=== PATIENT | female | born 1990 | race Caucasian/White ===

== ENCOUNTER 2018-10-30 11:18 | Outpatient (REF) | payer OTHER, SELFPAY ==
--- NOTE | 2018-10-30 10:30 | PAPFT_PTH ---
PATIENT: Windy Garsia LOC: [facility] U#:[id number] AGE/SX: 28/F ROOM: RE10/30/[address]: Roxanne Good NP : 1990 BED: DIS: 10/30/2018 SPEC #: [id number] RECD: 10/30/18 13:01 STATUS: MERRY ESPINOZA #: [id number] STONE: 10/30/18 10:[address]: Roxanne Good NP DEPT: [facility] Cytology RECD BY: Nadiya Davis ENTERED: 10/30/18 13:01 SP TYPE: PAPFT OTHR DR: Funmi Chaudhry Tissues: 1 - CX/ENDOCX FOR PAP SMEARS Procedures: PAP THIN PREP/UVM Screening HPV DNA PROBE Comments: [id number]
== END 2018-10-30 11:38 ==
LOC: LBN 11:18
PROVIDERS: PCP Nurse Practitioner Adult Health; Visit Provider Nurse Practitioner Women's Health
DX: Z12.4 Encounter for screening for malignant neoplasm of cervix (principal); Z11.51 Encounter for screening for human papillomavirus (HPV)
CPT/HCPCS: 88142; 87624

== ENCOUNTER 2019-05-29 13:18 | Outpatient (REF) | payer MEDICAID, SELFPAY ==
[2019-05-29 20:43] LABS: TSH (W/Ref FT4) 0.95 uIU/mL (0.36-3.74)
== END 2019-05-29 13:38 ==
LOC: NCHCN 13:18
PROVIDERS: PCP Nurse Practitioner Adult Health; Visit Provider Nurse Practitioner Psychiatric/Mental Health
DX: F41.9 Anxiety disorder, unspecified (principal)
CPT/HCPCS: 84443

== ENCOUNTER 2019-07-09 13:42 | Emergency (ER) | payer MEDICAID, SELFPAY ==
[2019-07-09 13:59] VITALS: BP 126/88; PULSE 91; RESP 16; TEMP 36.9; O2SAT 99
[2019-07-09 14:06] VITALS: RESP 16
--- NOTE | 2019-07-09 14:36 | ED.GENADUL_ITS ---
Discharge Plan Disposition Patient Disposition: HOME Condition: Stable Discharge Details Chief Complaint: GenMedical Clinical Impression: Cellulitis Primary Care Provider: Funmi Chaudhry ED Provider: Spenser Méndez Home Meds and New Rx's Prescriptions: New sulfamethoxazole-trimethoprim [Bactrim DS] 800-160 mg tablet 1 tab PO BID Qty: 20 RF: 0 No Action escitalopram oxalate [Lexapro] 10 mg Tablet 15 mg DAILY RF: 0 Discharge Instructions Instructions: Cellulitis (ED) Additional Instructions: Bactrim as directed. Rest, elevate, warm compresses every 2 hours for 20 minutes. Please watch for new or worsening symptoms and return to the ER for any concerns. I do recommend reaching out to your primary care provider tomorrow to discuss your ER visit and proper outpatient follow-up Medical Decision Making 29-year-old female presents with worsening left hand erythema, warmth, swelling. Examination does not reveal any obvious trauma, foreign body, abscess. Do not believe that advanced imaging is indicated. The erythema is not with any joint space, rather over the webbing. No evidence of tenosynovitis or septic joint. Likely mild cellulitis. She appears well, nontoxic. No indication for laboratory values. Discussed my thought process and plan. Will take a more conservative approach and initiate oral antibiotic therapy. Discussed importance of elevation, warm compresses, resting. Patient has no additional questions or concerns and is comfortable this plan. Will start with Bactrim DS Medical Records Medical records reviewed: Yes I reviewed the patient's medical records. HPI General Mode of arrival: ambulatory . Date/Time Provider Initiated Documentation: 07/09/19 14:01 . Limitations to Documentation: no limitations . Information obtained by: patient . HPI Narrative: This is a 29-year-old female presenting for possible insect bite or infection to her left hand. She reports that 5 days ago she was gardening and planting, did not notice any obvious puncture wound, insect bite, injury but noticed that she had a small amount of redness. This got slightly worse over the weekend so she saw her primary care provider yesterday. They felt as though this may be an allergic reaction secondary to insect bite and recommended antihistamines. She reports that today she feels as though the swelling and redness is slightly worse, mild-moderate pain with movement, although she denies any numbness, tingling, weakness. Denies fever. Denies rash elsewhere on her body. Denies chest pain or shortness of breath. The patient is right-hand dominant. Reports tetanus is up-to-date Related Data Home Medications Medication Instructions Recorded Confirmed escitalopram oxalate [Lexapro] 15 mg DAILY 07/09/19 07/09/19 sulfamethoxazole-trimethoprim 1 tab PO BID #20 tab 07/09/19 [Bactrim DS] Previous Rx's Medication Instructions Recorded sulfamethoxazole-trimethoprim 1 tab PO BID #20 tab 07/09/19 [Bactrim DS] Allergies Allergy/AdvReac Type Severity Reaction Status Date / Time No Known Allergies Allergy Verified 07/09/19 14:04 General Stated Complaint: GenMedical ALTA: 3 Review of Systems Constitutional Constitutional: Denies fever(s) and Denies weakness Cardiovascular Cardiovascular: Denies chest pain and Denies dyspnea Respiratory Respiratory: Denies cough and Denies dyspnea Gastrointestinal Gastrointestinal: Denies nausea and Denies vomiting Musculoskeletal Musculoskeletal: Denies myalgias, Reports joint swelling, Denies numbness and Denies tingling Integumentary/Breasts Skin/Breast: Reports rash Neurologic Neurologic: Denies numbness, Denies tingling, Denies paresthesias and Denies weakness PFSH Family History Mother Hypertension Father Throat cancer at 62 Social History Smoking/Tobacco Use Status: Former Tobacco Use Alcohol Intake: never Drug use: Daily Substance use type: marijuana Do you feel safe at home: Yes Do you feel safe in your relationship?: Yes History History 0 Para Hx # Term Pregnancies Multiple births Hx # Pregnancies Ectopic pregnancies AB induced Hx Number of Living Children AB spontaneous Exam Const General: cooperative, healthy appearing, comfortable and no acute distress Orientation: alert and awake HENMT Head: normal to inspection, normocephalic and atraumatic Mouth: moist mucous membranes Eyes Conjunctivae: conjunctivae normal Neck Neck: normal visual inspection, trachea midline and supple Resp Effort & Inspection: normal respiratory effort and able to speak in complete sentences Auscultation: clear to auscultation bilaterally Cardio Rate: regular rate Rhythm: regular rhythm Skin General skin exam: erythema Neuro General: patient alert, patient awake, moves all extremities and no focal motor deficits Motor: muscle tone normal throughout and strength 5/5 throughout Sensory Exam: no sensory deficits noted Extrem Left upper extremity: full ROM, normal capillary refill and hand Details: abnormal to inspection, normal capillary refill, neuromotor exam normal, neurosensory exam normal, tendon exam normal, tenderness, normal ROM of fingers, warmth, swelling and other (No foreign body, induration, fluctuance, drainage); no ecchymosis, no foreign bodies and no puncture wound; no cyanosis, no edema and joint enlargement noted Hand/finger images: 1. Mild swelling, erythema, warmth, discomfort 2. Mild swelling, erythema, warmth, discomfort 3. Mild erythema Psych Appearance: grossly normal Mental Status: mental status grossly normal Course Vital Signs Vital signs: Vital Signs Temperature 36.9 C 07/09/19 13:59 Pulse 91 H 07/09/19 13:59 Respiratory Rate 16 07/09/19 13:59 Blood Pressure 126/88 07/09/19 13:59 Pulse Oximetry 99 07/09/19 13:59 Temperature 36.9 C 07/09/19 13:59 Temperature Source Tympanic 07/09/19 13:59 Pulse 91 H 07/09/19 13:59 Respiratory Rate 16 07/09/19 14:06 Respiratory Effort Non-Labored 07/09/19 14:06 Respiratory Depth Normal 07/09/19 14:06 Respiratory Pattern Normal 07/09/19 14:06 Blood Pressure 126/88 07/09/19 13:59 Pulse Oximetry 99 07/09/19 13:59 Oxygen Delivery Method Room Air 07/09/19 13:59 Oxygen Flow Rate 0 07/09/19 13:59 Pain Level 3 07/09/19 13:59
== END 2019-07-09 16:46 | disposition home or self-care (01) ==
LOC: ER 16:46
PROVIDERS: Emergency Provider Physician Assistant; PCP Nurse Practitioner Adult Health
DX: L03.114 Cellulitis of left upper limb (principal)
CPT/HCPCS: 99283

== ENCOUNTER 2019-09-06 13:56 | Outpatient (REF) | payer MEDICAID, SELFPAY ==
[2019-09-09 08:25] LABS: Vitamin D 25 Total 20.2 ng/ml (30-100)
== END 2019-09-06 14:16 ==
LOC: NCHCN 13:56
PROVIDERS: PCP Nurse Practitioner Adult Health; Visit Provider Nurse Practitioner Psychiatric/Mental Health
DX: F41.9 Anxiety disorder, unspecified (principal)
CPT/HCPCS: 82306

== ENCOUNTER 2020-11-27 15:51 | Outpatient (CLI) | payer MEDICAID, SELFPAY ==
--- NOTE | 2020-11-27 | DI.RAD_ITS ---
Exam(s) XR FOOT RT COMPLETE EXAM: XR FOOT RT COMPLETE CLINICAL HISTORY: RT FOOT JOINT PAIN M79.671, PAIN OVER MID 5TH METATARSAL ? FX, CONCERN FOR. TECHNIQUE: 2D digital imaging was performed of the right foot. Three were obtained. AP, oblique an d lateral views were obtained. COMPARISON: No exams were available for comparison FINDINGS: BONES: No acute fracture is present. No bony destructive lesion is seen. JOINTS: No dislocation present. SOFT TISSUE: Normal. IMPRESSION: No acute fracture or dislocation. DATA REPOSITORY: RADIATION DOSE DELIVERED:
== END 2020-11-27 16:11 ==
PROVIDERS: PCP Nurse Practitioner Adult Health; Visit Provider Physician Assistant Medical
DX: M79.671 Pain in right foot (principal)
CPT/HCPCS: 73630

== ENCOUNTER 2021-07-12 13:38 | Emergency (ER) | payer OTHER, SELFPAY ==
[2021-07-12 13:44] VITALS: BP 132/84; PULSE 83; RESP 16; TEMP 36.7; O2SAT 99
--- NOTE | 2021-07-12 13:59 | ED.GENADUL_ITS ---
Discharge Plan Disposition Patient Disposition: HOME Condition: Improving Discharge Details Chief Complaint: Laceration Clinical Impression: Laceration of ankle Primary Care Provider: Funmi Chaudhry ED Provider: Pradeep Zendejas Discharge Instructions Instructions: Laceration (ED) Additional Instructions: Please keep wound clean and dry. Please return to emergency department if you develop signs of infection such as fever purulent drainage redness increased pain or if you notice bleeding worsening pain or poorly healing wound. Your sutures are absorbable and should spontaneously dissolve. Stand Alone Forms: Work Release Medical Decision Making 31-year-old female presents after sustaining laceration to posterior left ankle on tire rack at [employer]; hemostatic no foreign body, ambulatory without assistance, full range of motion both passive and active with flexion extension of ankle, no exposed tendinous material, will apply topical anesthetic given location, primary repair with observable sutures, home care instructions and return precautions. No evidence of tendon involvement or infection no evidence of foreign body. 15: 08 patient resting comfortably no acute distress hemostatic, wound irrigated and explored, no tendinous structures or foreign bodies appreciated, repaired with 4-0 Vicryl simple interrupted x3, Steri-Strips and dry dressing applied. Home care instructions and return precautions given HPI General Date/Time Provider Initiated Documentation: 07/12/21 13:39 . HPI Narrative: 31-year-old female denies past medical history endorses sustaining laceration to left ankle while moving a tire rack at [employer]. Superficial lacer ation to left ankle hemostatic with pressure. Tetanus last updated in 2019. No other injuries Related Data Allergies Allergy/AdvReac Type Severity Reaction Status Date / Time adhesive AdvReac Unverified 07/12/21 13:48 General Stated Complaint: Laceration ALTA: 3 Review of Systems Narrative: Review of Systems Constitutional: negative Eyes: negative ENT: negative Cardiovascular: negative Respiratory: negative Gastrointestinal: negative : negative Musculoskeletal: negative Skin: Laceration Neurologic: negative Psych: negative PFSH All Active Problems (Updated 07/12/21 @ 15:12 by Pradeep Zendejas MD) Laceration of ankle (Acute) Family History Mother Hypertension Father Throat cancer at 62 Social History Smoking/Tobacco Use Status: Former Tobacco Use Smoking risk assessment performed?: Yes Alcohol Intake: never Drug use: Daily Substance use type: marijuana Do you feel safe at home: Yes Do you feel safe in your relationship?: Yes History History 0 Para Hx # Term Pregnancies Multiple births Hx # Pregnancies Ectopic pregnancies AB induced Hx Number of Living Children AB spontaneous Exam Narrative Exam Narrative: Physical Examination General: alert, awake, cooperative, resting comfortably, no acute distress HEENT: normocephalic, atraumatic; PERRL, EOM intact, conjunctiva normal; no nasal discharge; moist mucous membranes, oral and pharyngeal mucosa normal, tolerating secretions Neck: supple, trachea midline; full ROM Chest: normal to inspection Respiratory: normal respiratory effort, speaking in full sentences, clear to auscultation, no wheezing, rales or rhonchi Cardiac: regular rate, regular rhythm, S1S2 intact, no murmurs rubs or gallops GI: abdomen soft, non-tender, non-distended; no palpable mass or hepatosplenomegaly Skin: 2 cm laceration to level subcutaneous tissue overlying Achilles of left ankle, hemostatic no foreign body Neuro: AAOx3, normal speech, moving all extremities Extremities: Full flexion and extension both passive and active at ankle Psych: Appropriate mood and affect Course Vital Signs Vital signs: Vital Signs Temperature 36.7 C 07/12/21 13:44 Pulse 83 07/12/21 13:44 Respiratory Rate 16 07/12/21 13:44 Blood Pressure 132/84 07/12/21 13:44 Pulse Oximetry 99 07/12/21 13:44 Temperature 36.7 C 07/12/21 13:44 Temperature Source Temporal Artery Scan 07/12/21 13:44 Pulse 83 07/12/21 13:44 Respiratory Rate 16 07/12/21 13:44 Respiratory Effort 07/12/21 13:49 Blood Pressure 132/84 07/12/21 13:44 Blood Pressure Position Supine 07/12/21 13:44 Pulse Oximetry 99 07/12/21 13:44 Oxygen Delivery Method Room Air 07/12/21 13:44 Oxygen Flow Rate 0 07/12/21 13:44 Pain Level 2 07/12/21 13:56 Procedures Laceration Laceration 1: Site: other (ankle) Side (If applicable): left Size (cm): 2 Description: linear Depth: simple, single layer Local Anesthetic: other anesthetic (LET) Pre-repair: wound explored and irrigated extensively Skin layer closed with: vicryl Size (cm): 4-0 Number of sutures: 3 Technique: simple, interrupted
[2021-07-12] MEDS: Lidocaine/Epinephri/Tetracaine Topical Gel 3 ML TP (14:04)
[2021-07-12 18:28] VITALS: BP 122/72; PULSE 78; RESP 18; TEMP 37.3; O2SAT 98
== END 2021-07-12 15:32 | disposition home or self-care (01) ==
PROVIDERS: Emergency Provider Emergency Medicine; PCP Nurse Practitioner Family
DX: S91.012A Laceration without foreign body, left ankle, initial encounter (principal); W22.8XXA Striking against or struck by other objects, initial encounter; Y99.0 Civilian activity done for income or pay
CPT/HCPCS: 12001

== ENCOUNTER 2021-07-12 17:50 | Emergency (ER) | payer OTHER, SELFPAY ==
[2021-07-12] MEDS: Lidocaine/Epinephri/Tetracaine Topical Gel 3 ML TP (18:19)
--- NOTE | 2021-07-12 18:52 | ED.GENADUL_ITS ---
Discharge Plan Disposition Patient Disposition: HOME Condition: Improving Discharge Details Chief Complaint: Recheck Clinical Impression: Laceration of ankle Primary Care Provider: Funmi Chaudhry ED Provider: Spenser Méndez Discharge Instructions Instructions: Laceration (ED) Additional Instructions: 2 sutures remained, I placed 3 nonabsorbable sutures and then used Dermabond over the entire laceration. The absorbable sutures will fall out on their own but the other sutures need to be removed in the next 7-10 days. Please change nonstick dressing daily and watch for new or worsening symptoms and return to the ER for any concerns. Medical Decision Making 31-year-old female who sustained a laceration earlier in the day, was repaired with 4 sutures, 2 sutures subsequently fell out. Neuro, vascular, tendon intact. Will repair the laceration. After the 3 sutures were placed I then used Dermabond over the entire laceration as well and then a dry sterile dressing was applied. Patient tolerated well. Standard discharge and return precautions were provided. Patient understands, is agreeable to this plan, and has no additional questions or concerns upon discharge. This documentation was generated using [employer] system, please disregard any oddities of phrase or misspellings. Medical Records Medical records reviewed: Yes I reviewed the patient's medical records. HPI General Mode of arrival: ambulatory . Date/Time Provider Initiated Documentation: 07/12/21 17:53 . Limitations to Documentation: no limitations . Information obtained by: patient . HPI Narrative: 31-year-old female presents to the ER for wound reevaluation. She was seen in the ER earlier today after sustaining a laceration, reports tetanus status is up-to-date, please see that note. Subsequently the 2 medial sutures have fallen out. She denies any additional injury, numbness, tingling, weakness, fever. Related Data Allergies Allergy/AdvReac Type Severity Reaction Status Date / Time adhesive AdvReac Unverified 07/12/21 13:48 General Stated Complaint: Recheck ALTA: 4 Review of Systems Constitutional Constitutional: Denies weakness Musculoskeletal Musculoskeletal: Denies numbness and Denies tingling Integumentary/Breasts Skin/Breast: Denies erythema Neurologic Neurologic: Denies numbness, Denies tingling and Denies weakness PFSH All Active Problems (Updated 07/12/21 @ 19:00 by JOVANNY Weller) Laceration of ankle (Acute) Family History Mother Hypertension Father Throat cancer at 62 Social History Smoking/Tobacco Use Status: Former Tobacco Use Smoking risk assessment performed?: Yes Alcohol Intake: never Drug use: Daily Substance use type: marijuana Do you feel safe at home: Yes Do you feel safe in your relationship?: Yes History History 0 Para Hx # Term Pregnancies Multiple births Hx # Pregnancies Ectopic pregnancies AB induced Hx Number of Living Children AB spontaneous Exam Const General: cooperative, healthy appearing, comfortable and no acute distress Orientation: alert and awake HENMT Head: normal to inspection, normocephalic and atraumatic Mouth: moist mucous membranes Eyes Conjunctivae: conjunctivae normal Neck Neck: normal visual inspection, trachea midline and supple Resp Effort & Inspection: normal respiratory effort and able to speak in complete sentences Cardio Rate: regular rate Rhythm: regular rhythm Skin General skin exam: no rashes or lesions noted Neuro General: patient alert, patient awake, moves all extremities and no focal motor deficits Cognition: normal cognition Speech: speech normal Gait: normal gait Motor: muscle tone normal throughout Sensory Exam: no sensory deficits noted Extrem General: full ROM and capillary refill normal Upper/lower leg/hip images: 1. Approximately 2 cm laceration, the lateral aspect is well approximated with 2 sutures but the medial aspect is slightly open and there are no sutures present. No bleeding or foreign body. Neuro, vascular, tendon intact. Psych Appearance: grossly normal Mental Status: mental status grossly normal Course Vital Signs Vital signs: Respiratory Effort 07/12/21 18:04 Procedures Laceration Laceration 1: Site: lower extremity Side (If applicable): left Size (cm): 2 Description: irregular and clean Depth: simple, single layer Local Anesthetic: other anesthetic (LET) Amount of anesthesia used (mL): 5 Pre-repair: wound explored, irrigated extensively and deep structures intact Skin layer closed with: nylon Size (cm): 4-0 Number of sutures: 3 Technique: simple, interrupted
== END 2021-07-12 19:06 | disposition home or self-care (01) ==
PROVIDERS: Emergency Provider Physician Assistant; PCP Nurse Practitioner Family
DX: T81.33XA Disruption of traumatic injury wound repair, initial encounter (principal); S91.012D Laceration without foreign body, left ankle, subsequent encounter; X58.XXXD Exposure to other specified factors, subsequent encounter
CPT/HCPCS: 12001

== ENCOUNTER 2021-12-28 13:10 | Outpatient (REF) | payer MEDICAID, SELFPAY ==
--- NOTE | 2021-12-28 11:55 | PAPFT_PTH ---
PATIENT: Windy Garsia LOC: [facility] U#:[id number] AGE/SX: 31/F ROOM: RE12/28/[address]: Holly Carrera MD : 1990 BED: DIS: 12/28/2021 SPEC #: [id number] RECD: 12/28/21 18:10 STATUS: MERRY REQ #: [id number] STONE: 12/28/21 11:[address]: Holly Carrera DEPT: [facility] Cytology RECD BY: Nadiya Davis ENTERED: 12/28/21 18:10 SP TYPE: PAPFT PARVIZ DR: YVETTE SUTHERLAND NP Tissues: 1 - CX/ENDOCX FOR PAP SMEARS Procedures: PAP THIN PREP/UVM Screening HPV DNA PROBE Comments: [id number]
== END 2021-12-28 13:11 | disposition home or self-care (01) ==
LOC: LBN 13:10
PROVIDERS: PCP Nurse Practitioner Family; Visit Provider Obstetrics & Gynecology
DX: Z12.4 Encounter for screening for malignant neoplasm of cervix (principal); Z11.51 Encounter for screening for human papillomavirus (HPV)
CPT/HCPCS: 88142; 87624

== ENCOUNTER 2023-01-19 11:08 | Outpatient (REF) | payer MEDICAID, SELFPAY ==
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
[2023-01-19 16:11] LABS: Abs Immature Grans 0.03 10^3/uL (0.0-0.06); Absolute Basophil Count 0.06 10^3/uL (0.0-0.2); Absolute Eosinophil Count 0.12 10^3/uL (0.0-0.7); Absolute Lymphocyte Count 2.39 10^3/uL (1.2-3.4); Absolute Monocyte Count 0.48 10^3/uL (0.1-0.8); Absolute Neutrophil Count 4.86 10^3/uL (1.2-6.7); Basophils % 0.8; Eosinophils % 1.5; HCT 39.7 % (36.0-46.0); HGB 13.1 g/dL (11.2-15.7); Immature Grans % 0.4; Lymphocytes % 30.1; MCH 29.8 pg (27.0-33.0); MCV 90 fL (80-95); Neutrophils % 61.2; Platelet Count 337 10^3/uL (130-400); RBC 4.39 10^6/uL (3.93-5.22); RDW 12.6 % (11.7-14.6); RDW-SD 42.1 fL; WBC 7.94 10^3/uL (4.4-10.8)
[2023-01-19 16:50] LABS: Vitamin D 25 Total 22.1 ng/mL (30-100)
[2023-01-19 17:26] LABS: ALT 20 U/L (14-59); AST 13 U/L (15-37); Albumin 4.4 g/dL (3.4-5.0); Alkaline Phosphatase 84 U/L (46-116); Anion Gap 13.1 mmol/L (3-11); BUN 13 mg/dL (7-18); Bilirubin, Total 0.3 mg/dL (0.2-1.0); CO2 22.9 mmol/L (21.0-32.0); CREATININE 0.8 mg/dL (0.55-1.02); Calcium 9.1 mg/dL (8.5-10.1); Calculated LDL 52 mg/dL (<100); Chloride 104 mmol/L (98-107); Cholesterol 145 mg/dL (<200); Estimated GFR 99.09 (mL/min/1.73m2); Glucose 72 mg/dL (74-106); HDL Cholesterol 73 mg/dL (40-60); Potassium 4.1 mmol/L (3.5-5.1); Sodium 140 mmol/L (136-145); TSH 0.53 uIU/mL (0.36-3.74); Total Protein 7.5 g/dL (6.4-8.2); Triglyceride 103 mg/dL (<150)
[2023-01-19 17:51] LABS: FREE T4 < 0.10 ng/dL (0.76-1.46)
[2023-01-19 19:17] LABS: Vitamin B12 458 pg/mL (193-986)
[2023-01-19 22:27] LABS: T3, Total 139 ng/dL (97-169)
== END 2023-01-19 11:09 | disposition home or self-care (01) ==
LOC: NCHCN 11:08
PROVIDERS: PCP Nurse Practitioner Family; Visit Provider Nurse Practitioner Family
DX: Z13.0 Encounter for screening for diseases of the blood and blood-forming organs and certain disorders involving the immune mechanism (principal); Z13.220 Encounter for screening for lipoid disorders; F41.9 Anxiety disorder, unspecified; R42 Dizziness and giddiness
CPT/HCPCS: 80053; 80061; 82306; 82607; 84439; 84443; 84480; 85025

== ENCOUNTER 2024-02-15 13:15 | Outpatient (REF) | payer MEDICAID, SELFPAY ==
[2024-02-15 21:17] LABS: FREE T4 0.99 ng/dL (0.76-1.46); TSH 0.71 uIU/mL (0.36-3.74)
[2024-02-15 23:12] LABS: Vitamin D 25 Total 30.7 ng/mL (30-100)
[2024-02-16 18:02] LABS: T3,Free 4.9 pg/mL (2.8-5.3)
[2024-02-16 18:16] LABS: T3, Total 149 ng/dL (97-169)
== END 2024-02-15 13:16 | disposition home or self-care (01) ==
LOC: NCHCN 13:15
PROVIDERS: PCP Nurse Practitioner Family; Visit Provider Nurse Practitioner Family
DX: E55.9 Vitamin D deficiency, unspecified (principal); R94.6 Abnormal results of thyroid function studies
CPT/HCPCS: 82306; 84439; 84443; 84480; 84481

== ENCOUNTER 2024-07-18 19:01 | Outpatient (REF) | payer MEDICAID, SELFPAY | END 2024-07-18 19:02 | disposition home or self-care (01) | LOC: LBN 19:01 | PROVIDERS: PCP Nurse Practitioner Family; Visit Provider Physician Assistant | DX: R30.0 Dysuria (principal) | CPT/HCPCS: 87480; 87510; 87660 ==